=== PATIENT | female | born 1980 | race Caucasian/White ===

== ENCOUNTER 2017-03-11 11:30 | Emergency (ER) | payer BC ==
[2017-03-11 11:41] VITALS: BP 95/57; BMI 20.3
[2017-03-11] MEDS ORDERED: TORADOL 30 MG VIAL IVP ONE (11:44)
[2017-03-11] MEDS ORDERED: NS 1000 ML 1,000 ML ONE (11:44)
[2017-03-11] MEDS ORDERED: TORADOL 30 MG VIAL ONE (11:44)
--- NOTE | 2017-03-11 11:44 | DR.GENAD ---
HPI - Complaint/Symptoms Chief Complaint Doctors Comments: Patient presents with comlaint of acute abdominal pain just prior to arrival. She denies vomitng or diarrhea; admits to nausea. She denies fever. ROS - Review of Systems Eyes: No Symptoms Reported ENTM: No Symptoms Reported Respiratoy: No Symptoms Reported Cardiovascular: No Symptoms Reported Gastrointestinal/Abdominal: See HPI, Abdominal Pain Genitourinary: No Symptoms Reported Neurological: No Symptoms Reported Musculoskeletal: No Symptoms Reported Integumentary: No Symptoms Reported Hematologic/Lymphatic: No Symptoms Reported Endocrine: No Symptoms Reported Psychiatric: No Symptoms Reported All Other Systems: Reviewed and Negative PE - Vital Signs Vitals: Temperature 97.7 F Pulse Rate 87 Respiratory Rate 18 Blood Pressure 95/57 O2 Sat by Pulse Oximetry 99 - General General Appearance: Alert, In No Apparent Distress - Head Head Exam: Normal Inspection, Atraumatic - Eyes Eye exam: Normal Appearance, PERRL, EOMI - ENT ENT Exam: Normal Exam, Normal Oropharynx, Normal External Ear Exam External Ear Exam: Normal External Inspection TM/Canal Exam: Bilateral Normal Nose Exam: Normal Nose Exam, Sinus Tenderness Mouth Exam: Normal Inspection Throat Exam: Normal Inspection - Neck Neck Exam: Normal Inspection, Full ROM - Chest Chest Inspection: Normal Inspection - Respiratory Respiratory Exam: Normal Lung Sounds Bilat Respiratory Exam: Bilateral Clear to Auscultation - Cardiovascular Cardiovascular Exam: Regular Rate, Normal Rhythm - Abdominal Exam Abdominal Exam: Normal Inspection, Normal Bowel Sounds, Soft, Hypoactive Bowel Sounds. negative: Distention, Tenderness, Organomegaly, Mass Abdominal Tenderness: negative: RUQ, RLQ, LUQ, LLQ, Epigastrium, Suprapubic, Diffuse, Mild, Moderate, Severe, Other - Extremities Extremities Exam: Normal Inspection, Full ROM - Back Back Exam: Normal Inspection - Neurologic Neurological Exam: Alert, Oriented X3, CN II-XII Intact - Psychiatric Psychiatric Exam: Normal Affect, Normal Mood - Skin Skin Exam: Warm, Dry, Intact Course - Reevaluation 1st: Improved ROR - Labs Reviewed Result Diagrams: 03/11/17 11:50 03/11/17 11:50 Laboratory: WBC 9.3 X10^3/uL (3.6-10.0) 03/11/17 11:50 RBC 4.38 X10^6/uL (3.5-5.4) 03/11/17 11:50 Hgb 13.7 g/dL (12.0-16.0) 03/11/17 11:50 Hct 39.9 % (36.0-47.0) 03/11/17 11:50 MCV 91.1 fL (80.0-100.0) 03/11/17 11:50 MCH 31.2 pg (27.0-34.0) 03/11/17 11:50 MCHC 34.3 g/dL (33.0-35.0) 03/11/17 11:50 RDW 13.4 % (11.6-16.5) 03/11/17 11:50 Plt Count 248 X10^3/uL (150.0-450.0) 03/11/17 11:50 MPV 7.5 fL (7.4-11.0) 03/11/17 11:50 Neut % 63.5 % (42.0-75.0) 03/11/17 11:50 Lymph % 28.0 % (21.0-51.0) 03/11/17 11:50 [place] % 6.4 % (0.0-13.0) 03/11/17 11:50 Eos % 1.4 % (0.9-2.9) 03/11/17 11:50 Baso % 0.7 % (0.2-1.0) 03/11/17 11:50 Neut # 5.9 x10^3/uL (2.2-4.8) H 03/11/17 11:50 Lymph # 2.6 X10^3/uL (1.3-2.9) 03/11/17 11:50 [place] # 0.6 x10^3/uL (0.3-0.8) 03/11/17 11:50 Eos # 0.1 x10^3/uL (0.0-0.2) 03/11/17 11:50 Baso # 0.1 X10^3/uL (0.0-0.1) 03/11/17 11:50 Absolute Nucleated RBC 0.0 /100WBC 03/11/17 11:50 Sodium 139 mmol/L (136-145) 03/11/17 11:50 Corrected Sodium 139 mmol/L (136-145) 03/11/17 11:50 Potassium 3.6 mmol/L (3.5-5.1) 03/11/17 11:50 Chloride 105 mmol/L (98-107) 03/11/17 11:50 Carbon Dioxide 24.8 mmol/L (21-32) 03/11/17 11:50 BUN 9 mg/dL (7-18) 03/11/17 11:50 Creatinine 0.77 mg/dL (0.55-1.02) 03/11/17 11:50 Est GFR (MDRD) Af Amer > 60 (>60) 03/11/17 11:50 Est GFR (MDRD) Non-Af > 60 (>60) 03/11/17 11:50 Glucose 119 mg/dL (65-99) H 03/11/17 11:50 Calcium 8.5 mg/dL (8.5-10.1) 03/11/17 11:50 C-Reactive Protein 6.30 mg/L (0-3.0) H 03/11/17 11:50 Specimen Type Clean catch urine 03/11/17 11:56 Urine Color Yellow (YELLOW) 03/11/17 11:56 Urine Appearance Slightly hazy (CLEAR) 03/11/17 11:56 Urine pH 8.0 (5.0 - 8.0) 03/11/17 11:56 Ur Specific [place] 1.015 (1.000-1.030) 03/11/17 11:56 Urine Protein 1+ (NEGATIVE) 03/11/17 11:56 Urine Glucose (UA) Negative (NEGATIVE) 03/11/17 11:56 Urine Ketones Negative (NEGATIVE) 03/11/17 11:56 Urine Occult Blood 1+ (NEGATIVE) 03/11/17 11:56 Urine Nitrite Negative (NEGATIVE) 03/11/17 11:56 Urine Bilirubin Negative (NEGATIVE) 03/11/17 11:56 Urine Urobilinogen 2+ (NORMAL) 03/11/17 11:56 Ur Leukocyte Esterase 1+ (NEGATIVE) 03/11/17 11:56 Urine RBC 0-2 /HPF (NEGATIVE) 03/11/17 11:56 Urine WBC 0-2 /HPF (NEGATIVE) 03/11/17 11:56 Ur Squamous Epith Cells Moderate /HPF (NEGATIVE) 03/11/17 11:56 Urine Bacteria Negative /HPF (NEGATIVE) 12/18/17 11:56 Ur Culture Indicated? No/not indicated 03/11/17 11:56 H. pylori IgG Antibody Negative (NEGATIVE) 03/11/17 11:50 - XRAY XRAY Interpreted by: Radiologist (Chest: Normal heart size with clear lungs and pleural spaces. Abdomen: supine and upright views demonstrate distention. However there are a few short air-fluid levels in the right abdomen. No free air, mass or ascities is demonstrated. Impression: findings describe consistent with lieus/enteritis or diarrhea. Follow up imaging should be considered if developing intestional obstruction becomes a clinical concern.) - Diagnosis Discharge Problem: Stomach pain Gastritis Qualifiers: Gastritis type: other gastritis Chronicity: acute Gastritis bleeding: without bleeding Qualified Code(s): K29.00 - Acute gastritis without bleeding - Discharge Plan Condition: Stable - Follow ups/Referrals Follow ups/Referrals: [facility],None [Primary Care Provider] - 3 days - Instructions
[2017-03-11] MEDS ORDERED: NS 1000 ML 1,000 ML IV SCH (12:00)
[2017-03-11 12:02] LABS: BASOPHILS # (AUTO) 0.1 X10^3/uL (0.0-0.1); BASOPHILS % (AUTO) 0.7 % (0.2-1.0); EOSINOPHILS # (AUTO) 0.1 x10^3/uL (0.0-0.2); EOSINOPHILS % (AUTO) 1.4 % (0.9-2.9); HEMATOCRIT 39.9 % (36.0-47.0); HEMOGLOBIN 13.7 g/dL (12.0-16.0); LYMPHOCYTES # (AUTO) 2.6 X10^3/uL (1.3-2.9); MEAN CORPUSCULAR HEMOGLOBIN 31.2 pg (27.0-34.0); MEAN CORPUSCULAR HGB CONC 34.3 g/dL (33.0-35.0); MEAN CORPUSCULAR VOLUME 91.1 fL (80.0-100.0); MEAN PLATELET VOLUME 7.5 fL (7.4-11.0); MONOCYTES # (AUTO) 0.6 x10^3/uL (0.3-0.8); MONOCYTES % (AUTO) 6.4 % (0.0-13.0); NEUTROPHILS # (AUTO) 5.9 x10^3/uL (2.2-4.8); NEUTROPHILS % (AUTO) 63.5 % (42.0-75.0); PLATELET COUNT 248 X10^3/uL (150.0-450.0); RED BLOOD COUNT 4.38 X10^6/uL (3.5-5.4); RED CELL DISTRIBUTION WIDTH 13.4 % (11.6-16.5); WHITE BLOOD COUNT 9.3 X10^3/uL (3.6-10.0)
[2017-03-11 12:02] LABS: BILIRUBIN,URINE NEGATIVE (NEGATIVE); BLOOD/HEMOGLOBIN,URINE 1+ (NEGATIVE); GLUCOSE, URINE NEGATIVE (NEGATIVE); KETONES,URINE NEGATIVE (NEGATIVE); LEUKOCYTE ESTERASE ,URINE 1+ (NEGATIVE); NITRITES,URINE NEGATIVE (NEGATIVE); PROTEIN,URINE 1+ (NEGATIVE); UROBILINOGEN,URINE 2+ (NORMAL)
[2017-03-11 12:18] LABS: APPEARANCE,URINE SLIGHTLY HAZY (CLEAR); COLOR,URINE YELLOW (YELLOW)
[2017-03-11 12:19] LABS: BACTERIA,URINE NEGATIVE /HPF (NEGATIVE); RBC,URINE 0-2 /HPF (NEGATIVE); SQUAMOUS EPITHELIAL CELL,UR MODERATE /HPF (NEGATIVE)
[2017-03-11] MEDS ORDERED: MORPHINE SULFATE INJ 4 MG IVP ONE (12:22)
--- NOTE | 2017-03-11 12:22 | RAD ---
Examination: Abdomen with PA chest History: Abdominal pain PA chest: Normal heart size with clear lungs and pleural spaces. Abdomen: Supine and upright views demonstrate no significant distention. However there are a few shor t air-fluid levels in the right abdomen. No free air, mass or ascites is demonstrated. Impression: Findings described consistent with ileus/enteritis or diarrhea. Follow-up imaging should be considered if developing intestinal obstruction becomes a clinical concern. Reported By:
[2017-03-11] MEDS ORDERED: MORPHINE SULFATE INJ 4 MG ONE (12:23)
[2017-03-11 12:29] LABS: BLOOD UREA NITROGEN 9 mg/dL (7-18); CALCIUM 8.5 mg/dL (8.5-10.1); CARBON DIOXIDE 24.8 mmol/L (21-32); CHLORIDE 105 mmol/L (98-107); COR NA(FOR HYPERGLY) 139 mmol/L (136-145); CREATININE 0.77 mg/dL (0.55-1.02); SODIUM 139 mmol/L (136-145); eGFR BLACK RACES > 60 (>60); eGFR NON BLACK RACES > 60 (>60)
[2017-03-11] MEDS ORDERED: BENTYL I.M. INJ 10 MG IM ONE ×2 (12:57→13:14)
== END 2017-03-11 14:01 | disposition home or self-care (01) ==
LOC: ER 11:54
DX: K29.00 Acute gastritis without bleeding (principal); R10.84 Generalized abdominal pain
CPT/HCPCS: 36415; 74022; 80048; 81001; 85025; 86140; 86677; 96365; 96372; 96374; 96375; 99283; J0500; J1885; J2270